=== PATIENT | female | born 1970 | race Caucasian/White ===

== ENCOUNTER 2017-06-03 14:58 | Emergency (ER) | payer SELFPAY ==
[~2017-06-03] VITALS: Ht 160 cm; Wt 95.3 kg
--- NOTE | 2017-06-03 16:05 | PHYS DOC ---
Past Medical History Past Medical History: COPD, High Cholesterol, Hypertension, Liver Disease, Other Additional Past Medical Histor: hepatitis c Past Surgical History: Appendectomy, Cholecystectomy, Hysterectomy, Tubal ligation, Other Additional Past Surgical Histo: Uterine Fibroid Tumors Additional Information: 3 ppd Alcohol Use: None Drug Use: None Adult General Chief Complaint Chief Complaint: CONTISPATION [facility] HPI Patient is a 46 year old female who presents with no bowel movement for the last 7-10 days. She states this happens quite frequently with her and she has diagnoses of irritable bowel syndrome. She states she's tried in the past MiraLAX and multiple other medications for constipation and enemas help. She states yesterday and today when she eats anything she vomits. She denies any blood in her stool states normally she has pretty hard bowel movements. She feels that her belly is distended but denies any pain acutely. She states that she's tried to 3 enemas at home and last time this happened she had milk of molasses enemas to help. Review of Systems Review of Systems Constitutional: Denies fever or chills [] Eyes: Denies change in visual acuity, redness, or eye pain [] HENT: Denies nasal congestion or sore throat [] Respiratory: Denies cough or shortness of breath [] Cardiovascular: No additional information not addressed in HPI [] GI: Denies abdominal pain, nausea, vomiting, bloody stools or diarrhea [] : Denies dysuria or hematuria [] Musculoskeletal: Denies back pain or joint pain [] Integument: Denies rash or skin lesions [] Neurologic: Denies headache, focal weakness or sensory changes [] Endocrine: Denies polyuria or polydipsia [] Current Medications Current Medications Current Medications Medications (Trade) Dose Ordered Sig/Shanelle Start Time Stop Time Status Last Admin Dose Admin Info (Do NOT chart on this entry -- for MONITORING) 1 each PRN DAILY PRN 06/03/17 16:30 06/05/17 16:29 Iohexol (Omnipaque 300 Mg/ml) 75 ml 1X ONCE 06/03/17 16:30 06/03/17 16:31 DC 06/03/17 16:30 75 ML Ondansetron HCl (Zofran) 4 mg 1X ONCE 06/03/17 16:30 06/03/17 16:31 DC 06/03/17 16:51 4 MG Sodium Monofluorophosphate (Fleet Adult) 133 ml 1X ONCE 06/03/17 19:45 06/03/17 19:46 DC Sodium Chloride 1,000 ml @ 1,000 mls/hr 1X ONCE 06/03/17 16:30 06/03/17 17:29 DC 06/03/17 16:47 1,000 MLS/HR Allergies Allergies Allergies Coded Allergies Type Severity Reaction Last Updated Verified Penicillins Allergy Intermediate 04/09/14 Yes Physical Exam Physical Exam Constitutional: Well developed, well nourished, no acute distress, non-toxic appearance. [] HENT: Normocephalic, atraumatic, bilateral external ears normal, oropharynx moist, no oral exudates, nose normal. [] Eyes: PERRLA, EOMI, conjunctiva normal, no discharge. [] Neck: Normal range of motion, no tenderness, supple, no stridor. [] Cardiovascular:Heart rate regular rhythm, no murmur [] Lungs & Thorax: Bilateral breath sounds clear to auscultation [] Abdomen: Bowel sounds normal, soft, no tenderness, no masses, no pulsatile masses. [] Skin: Warm, dry, no erythema, no rash. [] Back: No tenderness, no CVA tenderness. [] Extremities: No tenderness, no cyanosis, no clubbing, ROM intact, no edema. [] Neurologic: Alert and oriented X 3, normal motor function, normal sensory function, no focal deficits noted. [] Psychologic: Affect normal, judgement normal, mood normal. [] Current Patient Data Vital Signs Vital Signs Date Time Temp Pulse Resp B/P (MAP) Pulse Ox O2 Delivery O2 Flow Rate FiO2 06/03/17 17:02 77 20 127/82 (97) 96 Room Air 06/03/17 15:05 97.8 97.8 Lab Values Laboratory Tests Test 06/03/17 15:10 06/03/17 16:55 Urine Collection Type Unknown Urine Color Yellow Urine Clarity Clear Urine pH 7.5 Urine Specific [place] 1.020 Urine Protein Negative mg/dL (NEG-TRACE) Urine Glucose (UA) Negative mg/dL (NEG) Urine Ketones (Stick) Negative mg/dL (NEG) Urine Blood Negative (NEG) Urine Nitrite Negative (NEG) Urine Bilirubin Negative (NEG) Urine Urobilinogen Dipstick 1.0 mg/dL (0.2 mg/dL) Urine Leukocyte Esterase Trace (NEG) Urine RBC 0 /HPF (0-2) Urine WBC Occ /HPF (0-4) Urine Squamous Epithelial Cells Mod /LPF Urine Bacteria Moderate /HPF (0-FEW) Urine Mucus Slight /LPF Urine Opiates Screen Neg (NEG) Urine Methadone Screen Neg (NEG) Urine Barbiturates Neg (NEG) Urine Phencyclidine Screen Neg (NEG) Urine Amphetamine/Methamphetamine Neg (NEG) Urine Benzodiazepines Screen Neg (NEG) Urine Cocaine Screen Neg (NEG) Urine Cannabinoids Screen Neg (NEG) Urine Ethyl Alcohol Neg (NEG) White Blood Count 10.0 x10^3/uL (4.0-11.0) Red Blood Count 4.79 x10^6/uL (3.50-5.40) Hemoglobin 15.1 g/dL (12.0-15.5) Hematocrit 43.7 % (36.0-47.0) Mean Corpuscular Volume 91 fL (79-100) Mean Corpuscular Hemoglobin 31 pg (25-35) Mean Corpuscular Hemoglobin Concent 35 g/dL (31-37) Red Cell Distribution Width 12.8 % (11.5-14.5) Platelet Count 241 x10^3/uL (140-400) Neutrophils (%) (Auto) 56 % (31-73) Lymphocytes (%) (Auto) 35 % (24-48) Monocytes (%) (Auto) 6 % (0-9) Eosinophils (%) (Auto) 2 % (0-3) Basophils (%) (Auto) 1 % (0-3) Neutrophils # (Auto) 5.6 x10^3uL (1.8-7.7) Lymphocytes # (Auto) 3.4 x10^3/uL (1.0-4.8) Monocytes # (Auto) 0.6 x10^3/uL (0.0-1.1) Eosinophils # (Auto) 0.2 x10^3/uL (0.0-0.7) Basophils # (Auto) 0.1 x10^3/uL (0.0-0.2) Prothrombin Time 12.7 SEC (11.7-14.0) Prothrombin Time INR 1.0 (0.8-1.1) PTT 26 SEC (24-38) Sodium Level 137 mmol/L (136-145) Potassium Level 3.7 mmol/L (3.5-5.1) Chloride Level 99 mmol/L (98-107) Carbon Dioxide Level 27 mmol/L (21-32) Anion Gap 11 (6-14) Blood Urea Nitrogen 21 mg/dL (7-20) H Creatinine 0.9 mg/dL (0.6-1.0) Estimated GFR (Cockcroft-Gault) 67.1 Glucose Level 137 mg/dL (70-99) H Calcium Level 8.5 mg/dL (8.5-10.1) Total Bilirubin 0.3 mg/dL (0.2-1.0) Direct Bilirubin 0.1 mg/dL (0.0-0.2) Aspartate Amino Transferase (AST) 32 U/L (15-37) Alanine Aminotransferase (ALT) 63 U/L (14-59) H Alkaline Phosphatase 46 U/L (46-116) Creatine Kinase 87 U/L (26-192) Creatine Kinase MB (Mass) 0.6 ng/mL (0.0-3.6) Creatine Kinase MB Relative Index 0.7 % (0-4) Total Protein 8.2 g/dL (6.4-8.2) Albumin 4.6 g/dL (3.4-5.0) Lipase 169 U/L (73-393) Laboratory Tests 06/03/17 16:55 Laboratory Tests 06/03/17 16:55 EKG EKG [] Radiology/Procedures Radiology/Procedures [facility] [address] [place], [place] [id number] IMAGING REPORT Signed PATIENT: PASCALE RAGLAND ACCOUNT: [id number] : 1970 LOCATION: ER AGE: 46 SEX: F EXAM STATUS: REG ER ORD. PHYSICIAN: MAYURI ZABALA MD REASON: abd pain/constipation PROCEDURE: CT ABD PELV W/ORAL&IV CONTRAST CT Abdomen and Pelvis With Intravenous Contrast: History: Abdominal pain and constipation for 2 days. Comparison: None. Technique: After administration of oral and intravenous contrast administration, 75 mL Omnipaque-300, CT of the abdomen and pelvis was performed. Exposure: One or more of the following individualized dose reduction techniques were utilized for this examination: 1. Automated exposure control 2. Adjustment of the mA and/or kV according to patient size 3. Use of iterative reconstruction technique Findings: Fatty liver disease is seen. Spleen pancreas is unremarkable. Both adrenal glands demonstrate mild nodular thickening. Gallbladder is absent. Bilateral kidneys enhance symmetrically. Urinary bladder is unremarkable. No bowel obstruction or inflammation is seen. Appendix is absent. Uterus is absent. Urinary bladder is unremarkable. No free air free fluid is seen in the abdomen or pelvis. Small fat-containing epigastric ventral hernias present. Impression: 1. No acute abnormality identified in the abdomen or pelvis. 2. Fat-containing ventral hernia. Electronically signed by: Jarvis Marks MD (06/03/2017 6:34 PM) [facility] DICTATED and SIGNED BY: JARVIS MARKS MD DATE: 06/03/17 183 CC: MAYURI ZABALA MD; UNKNOWN PCP NAME ~ Impressions: Constipation Course & Med Decision Making Course & Med Decision Making Pertinent Labs and Imaging studies reviewed. (See chart for details) [] Dragon Disclaimer Dragon Disclaimer This electronic medical record was generated, in whole or in part, using a voice recognition dictation system. Departure Departure Impression: Primary Impression: Constipation Disposition: 01 HOME, SELF-CARE Condition: STABLE Referrals: UNKNOWN PCP NAME (PCP) LIA MADERA MD Patient Instructions: Constipation, Adult Additional Instructions: The CAT scan of your abdomen pelvis did not show any acute abnormality's. You received milk of molasses enemas and being discharged home. You can go to the pharmacy and steel pickler mag citrate bottle and drink one bottle and this should make you used the bathroom. He should follow up with your primary care physician and a GI physician regarding your issues with constipation. You can call Dr. Chacon and schedule appointment with him. Return ER if you have worsening pain, uncontrolled nausea vomiting, or other concerns. Problem Qualifiers Primary Impression: Constipation Constipation type: other constipation type Qualified Codes: K59.09 - Other constipation MAYURI ZABALA MD Jun 03, 2017 16:05
[2017-06-03 16:24] LABS: BILIRUBIN,URINE NEGATIVE (NEG); GLUCOSE,URINE NEGATIVE (NEG); NITRITE,URINE NEGATIVE (NEG); PH,URINE 7.5; PROTEIN,URINE NEGATIVE (NEG-TRACE)
[2017-06-03] MEDS ORDERED: IV NORMAL SALINE 1000ML BAG 1,000 ML IV ONE (16:30)
[2017-06-03] MEDS ORDERED: IOHEXOL 300 MG/ML 75 ML VIAL IV ONE (16:30)
[2017-06-03] MEDS ORDERED: CONTRAST GIVEN MC PRN (16:30)
[2017-06-03] MEDS ORDERED: ONDANSETRON PF 4 MG/2 ML VIAL. IV ONE (16:30)
[2017-06-03 16:39] LABS: BARBITURATES NEG (NEG); BENZODIAZEPINES NEG (NEG); CANNABINOIDS NEG (NEG); COCAINE NEG (NEG); METHADONE NEG (NEG); OPIATES NEG (NEG); PHENCYCLIDINE NEG (NEG)
[2017-06-03 16:55] LABS: BACTERIA,URINE MODERATE /HPF (0-FEW); RBC,URINE 0 /HPF (0-2); SQUAMOUS EPITHELIAL CELL,UR MOD /LPF; WBC,URINE OCC /HPF (0-4)
[2017-06-03 17:02] VITALS: BP 127/82
[2017-06-03 17:19] LABS: BASO # 0.1 x10^3/uL (0.0-0.2); BASO % 1 % (0-3); EOS % 2 % (0-3); HEMATOCRIT 43.7 % (36.0-47.0); HEMOGLOBIN 15.1 g/dL (12.0-15.5); LYMPH # 3.4 x10^3/uL (1.0-4.8); LYMPH % 35 % (24-48); MEAN CORPUSCULAR HEMOGLOBIN 31 pg (25-35); MEAN CORPUSCULAR HGB CONC 35 g/dL (31-37); MEAN CORPUSCULAR VOLUME 91 fL (79-100); MONO % 6 % (0-9); NEUT % 56 % (31-73); PLATELET COUNT 241 x10^3/uL (140-400); RED BLOOD COUNT 4.79 x10^6/uL (3.50-5.40); RED CELL DISTRIBUTION WIDTH 12.8 % (11.5-14.5)
[2017-06-03 17:33] LABS: CALCIUM 8.5 mg/dL (8.5-10.1); CREATININE 0.9 mg/dL (0.6-1.0); GFR 67.1; POTASSIUM 3.7 mmol/L (3.5-5.1)
[2017-06-03 17:37] LABS: PROTHROMBIN TIME PATIENT 12.7 SEC (11.7-14.0)
[2017-06-03 17:45] LABS: CKMB MASS 0.6 ng/mL (0.0-3.6)
[2017-06-03 17:46] LABS: ALBUMIN 4.6 g/dL (3.4-5.0); DIRECT BILIRUBIN 0.1 mg/dL (0.0-0.2); TOTAL BILIRUBIN 0.3 mg/dL (0.2-1.0); TOTAL PROTEIN 8.2 g/dL (6.4-8.2)
--- NOTE | 2017-06-03 18:38 | RAD ---
CT Abdomen and Pelvis With Intravenous Contrast: History: Abdominal pain and constipation for 2 days. Comparison: None. Technique: After administration of oral and intravenous contrast administration, 75 mL Omnipaque-300, CT of the abdomen and pelvis was performed. Exposure: One or more of the following individualized dose reduction techniques were utilized for this examination: 1. Automated exposure control 2. Adjustment of the mA and/or kV according to patient size 3. Use of iterative reconstruction technique Findings: Fatty liver disease is seen. Spleen pancreas is unremarkable. Both adrenal glands demonstrate mild nodular thickening. Gallbladder is absent. Bilateral kidneys enhance symmetrically. Urinary bladder is unremarkable. No bowel obstruction or inflammation is seen. Appendix is absent. Uterus is absent. Urinary bladder is unremarkable. No free air free fluid is seen in the abdomen or pelvis. Small fat-containing epigastric ventral hernias present. Impression: 1. No acute abnormality identified in the abdomen or pelvis. 2. Fat-containing ventral hernia. Electronically signed by: Jarvis Melchor MD (06/03/2017 6:34 PM) [facility]
[2017-06-03] MEDS ORDERED: SODIUM PHOSPHATES 19/7GM 133 ML ENEMA. PR ONE (19:45)
== END 2017-06-03 20:25 | disposition home or self-care (01) ==
LOC: ER 14:58
DX: K59.00 Constipation, unspecified (principal); J44.9 Chronic obstructive pulmonary disease, unspecified; E78.00 Pure hypercholesterolemia, unspecified; I10 Essential (primary) hypertension; K58.9 Irritable bowel syndrome, unspecified; F17.200 Nicotine dependence, unspecified, uncomplicated; Z88.0 Allergy status to penicillin; Z86.19 Personal history of other infectious and parasitic diseases; Z90.49 Acquired absence of other specified parts of digestive tract; Z90.710 Acquired absence of both cervix and uterus
CPT/HCPCS: 36415; 74177; 80048; 80076; 80307; 81001; 82553; 83690; 85025; 85610; 85730; 87086; 96361; 96374; 99285; J2405; J7030; Q9967; G0479

== ENCOUNTER 2019-04-14 16:45 | Emergency (ER) | payer SELFPAY ==
[~2019-04-14] VITALS: Ht 160 cm; Wt 102.5 kg
--- NOTE | 2019-04-14 18:16 | RAD ---
ABDOMEN SUPINE UPRIGHT History: Constipation Comparison: February 20, 2011 Findings: Single upright and single AP supine views of abdomen are submitted. No free air is identified. There has been cholecystectomy. There are several air-fluid levels most notable in the right abdomen in the small bowel. Segments of small bowel are borderline dilated in the right abdomen. There is some gas in the colon. There is retained stool greater of the right colon and near splenic flexure. Impression: 1. There are some nonspecific air-fluid levels most notable of borderline dilated small bowel in the right abdomen which could be due to early partial obstruction or ileus. There is some retained stool in the colon. Electronically signed by: Jose Walters MD (04/14/2019 6:13 PM) [facility]
[2019-04-14 18:59] LABS: BARBITURATES NEG (NEG); BENZODIAZEPINES NEG (NEG); CANNABINOIDS NEG (NEG); COCAINE NEG (NEG); METHADONE NEG (NEG); OPIATES NEG (NEG); PHENCYCLIDINE NEG (NEG)
[2019-04-14 19:02] LABS: AMPHETAMINE/METHAMPHETAMINE NEG (NEG)
[2019-04-14 19:22] LABS: BASO # 0.1 x10^3/uL (0.0-0.2); BASO % 1 % (0-3); EOS # 0.2 x10^3/uL (0.0-0.7); EOS % 2 % (0-3); HEMATOCRIT 44.9 % (36.0-47.0); HEMOGLOBIN 15.7 g/dL (12.0-15.5); LYMPH # 4.1 x10^3/uL (1.0-4.8); LYMPH % 42 % (24-48); MEAN CORPUSCULAR HEMOGLOBIN 32 pg (25-35); MEAN CORPUSCULAR HGB CONC 35 g/dL (31-37); MEAN CORPUSCULAR VOLUME 90 fL (79-100); MONO # 0.5 x10^3/uL (0.0-1.1); MONO % 5 % (0-9); NEUT # 4.8 x10^3uL (1.8-7.7); NEUT % 49 % (31-73); PLATELET COUNT 223 x10^3/uL (140-400); RED BLOOD COUNT 4.99 x10^6/uL (3.50-5.40); RED CELL DISTRIBUTION WIDTH 12.9 % (11.5-14.5); WHITE BLOOD COUNT 9.8 x10^3/uL (4.0-11.0)
--- NOTE | 2019-04-14 19:39 | PHYS DOC ---
Past Medical History Past Medical History: COPD, High Cholesterol, Hypertension, Liver Disease, Other Additional Past Medical Histor: hepatitis c (ERNST LYON APRN) Past Surgical History: Appendectomy, Cholecystectomy, Hysterectomy, Tubal ligation, Other Additional Past Surgical Histo: Uterine Fibroid Tumors (ERNST LYON APRN) Alcohol Use: None Drug Use: None (ERNST LYON APRN) Adult General Chief Complaint Chief Complaint: CONSTIPATION HPI HPI Patient is a 48 year old female with a history of high cholesterol, hypertension, liver disease, COPD, who presents to the ED today complaining of constipation with mild generalized abdominal pain for one week. Patient states her last normal bowel movement was a week ago, she has tried enemas as well as OTC enemas with small amount of stool. She states she has history of chronic constipation. Denies taking any medications that could make her constipated. She is also complaining of nausea and vomiting. (ERNST LYON APRN) Review of Systems Review of Systems Constitutional: Denies fever or chills [] Eyes: Denies change in visual acuity, redness, or eye pain [] HENT: Denies nasal congestion or sore throat [] Respiratory: Denies cough or shortness of breath [] Cardiovascular: No additional information not addressed in HPI [] GI: Reports constipation, abdominal pain, nausea and vomiting, denies bloody sto ols or diarrhea [] : Denies dysuria or hematuria [] Musculoskeletal: Denies back pain or joint pain [] Integument: Denies rash or skin lesions [] Neurologic: Denies headache, focal weakness or sensory changes [] All other systems were reviewed and found to be within normal limits, except as documented in this note. (ERNST LYON APRN) Current Medications Current Medications Current Medications Medications (Trade) Dose Ordered Sig/Shanelle Start Time Stop Time Status Last Admin Dose Admin Bisacodyl (Dulcolax Tab) 10 mg 1X ONCE 04/14/19 22:00 04/14/19 22:00 DC 04/14/19 21:35 10 MG Info (CONTRAST GIVEN -- Rx MONITORING) 1 each PRN DAILY PRN 04/14/19 20:45 04/14/19 21:43 DC Iohexol (Omnipaque 300 Mg/ml) 75 ml 1X ONCE 04/14/19 21:00 04/14/19 21:01 DC 04/14/19 20:45 75 ML Ketorolac Tromethamine (Toradol 30mg Vial) 30 mg 1X ONCE 04/14/19 19:45 04/14/19 19:46 DC 04/14/19 19:36 30 MG Magnesium Citrate (Citroma) 296 ml STK-MED ONCE 04/14/19 21:26 04/14/19 21:27 DC Ondansetron HCl (Zofran Odt) 4 mg 1X ONCE 04/14/19 22:00 04/14/19 22:00 DC 04/14/19 21:34 4 MG (DANIEL MYLES DO) Allergies Allergies Allergies Coded Allergies Type Severity Reaction Last Updated Verified Penicillins Allergy Intermediate 04/09/14 Yes (DANIEL MYLES DO) Physical Exam Physical Exam Constitutional: Well developed, well nourished, no acute distress, non-toxic appearance. [] HENT: Normocephalic, atraumatic, bilateral external ears normal, oropharynx moist, no oral exudates, nose normal. [] Eyes: PERRLA, EOMI, conjunctiva normal, no discharge. [] Neck: Normal range of motion, no tenderness, supple, no stridor. [] Cardiovascular:Heart rate regular rhythm, no murmur [] Lungs & Thorax: Bilateral breath sounds clear to auscultation [] Abdomen: Rounded nondistended abdomen. Bowel sounds normal, soft, diffuse tenderness throughout the abdomen, no masses, no pulsatile masses. [] Skin: Warm, dry, no erythema, no rash. [] Back: No tenderness, no CVA tenderness. [] Extremities: No tenderness, no cyanosis, no clubbing, ROM intact, no edema. [] Neurologic: Alert and oriented X 3, normal motor function, normal sensory function, no focal deficits noted. [] Psychologic: Affect normal, judgement normal, mood normal. [] (ERNST LYON APRN) Current Patient Data Vital Signs Vital Signs Date Time Temp Pulse Resp B/P (MAP) Pulse Ox O2 Delivery O2 Flow Rate FiO2 04/14/19 20:48 80 16 144/70 (94) 98 Room Air 04/14/19 17:27 98.1 98.1 (DANIEL MYLES DO) Lab Values Laboratory Tests Test 04/14/19 17:30 04/14/19 19:07 7/6/19 19:35 Urine Opiates Screen Neg (NEG) Urine Methadone Screen Neg (NEG) Urine Barbiturates Neg (NEG) Urine Phencyclidine Screen Neg (NEG) Urine Amphetamine/Methamphetamine Neg (NEG) Urine Benzodiazepines Screen Neg (NEG) Urine Cocaine Screen Neg (NEG) Urine Cannabinoids Screen Neg (NEG) Urine Ethyl Alcohol Neg (NEG) White Blood Count 9.8 x10^3/uL (4.0-11.0) Red Blood Count 4.99 x10^6/uL (3.50-5.40) Hemoglobin 15.7 g/dL (12.0-15.5) H Hematocrit 44.9 % (36.0-47.0) Mean Corpuscular Volume 90 fL (79-100) Mean Corpuscular Hemoglobin 32 pg (25-35) Mean Corpuscular Hemoglobin Concent 35 g/dL (31-37) Red Cell Distribution Width 12.9 % (11.5-14.5) Platelet Count 223 x10^3/uL (140-400) Neutrophils (%) (Auto) 49 % (31-73) Lymphocytes (%) (Auto) 42 % (24-48) Monocytes (%) (Auto) 5 % (0-9) Eosinophils (%) (Auto) 2 % (0-3) Basophils (%) (Auto) 1 % (0-3) Neutrophils # (Auto) 4.8 x10^3uL (1.8-7.7) Lymphocytes # (Auto) 4.1 x10^3/uL (1.0-4.8) Monocytes # (Auto) 0.5 x10^3/uL (0.0-1.1) Eosinophils # (Auto) 0.2 x10^3/uL (0.0-0.7) Basophils # (Auto) 0.1 x10^3/uL (0.0-0.2) Sodium Level 137 mmol/L (136-145) Potassium Level 4.2 mmol/L (3.5-5.1) Chloride Level 101 mmol/L (98-107) Carbon Dioxide Level 25 mmol/L (21-32) Anion Gap 11 (6-14) Blood Urea Nitrogen 17 mg/dL (7-20) Creatinine 0.8 mg/dL (0.6-1.0) Estimated GFR (Cockcroft-Gault) 76.2 BUN/Creatinine Ratio 21 (6-20) H Glucose Level 160 mg/dL (70-99) H Calcium Level 9.0 mg/dL (8.5-10.1) Total Bilirubin 0.3 mg/dL (0.2-1.0) Aspartate Amino Transferase (AST) 37 U/L (15-37) Alanine Aminotransferase (ALT) 71 U/L (14-59) H Alkaline Phosphatase 57 U/L (46-116) Total Protein 7.8 g/dL (6.4-8.2) Albumin 3.8 g/dL (3.4-5.0) Albumin/Globulin Ratio 1.0 (1.0-1.7) Lipase 354 U/L (73-393) Ethyl Alcohol Level < 10 mg/dL (0-10) Laboratory Tests 04/14/19 19:07 Laboratory Tests 04/14/19 19:35 (DANIEL MYLES DO) EKG EKG [] (ERNST LYON APRN) Radiology/Procedures Radiology/Procedures []PROCEDURE: ABDOMEN SUPINE & UPRIGHT ABDOMEN SUPINE UPRIGHT History: Constipation Comparison: February 20, 2011 Findings: Single upright and single AP supine views of abdomen are submitted. No free air is identified. There has been cholecystectomy. There are several air-fluid levels most notable in the right abdomen in the small bowel. Segments of small bowel are borderline dilated in the right abdomen. There is some gas in the colon. There is retained stool greater of the right colon and near splenic flexure. Impression: 1. There are some nonspecific air-fluid levels most notable of borderline dilated small bowel in the right abdomen which could be due to early partial obstruction or ileus. There is some retained stool in the colon. Electronically signed by: Cee Green MD (04/14/2019 6:13 PM) [facility] DICTATED and SIGNED BY: CEE GREEN MD DATE: 04/14/191812 PROCEDURE: CT ABD PELV W/ IV CONTRST ONLY PQRS Compliance statement: One or more of the following individualized dose reduction techniques were utilized for this examination: 1. Automated exposure control. 2. Adjustment of the mA and/or kV according to patient size. 3. Use of iterative reconstruction technique. Indication:Constipation. Possible ileus. TECHNIQUE: CT abdomen and pelvis with IV contrast with multiplanar reformats. COMPARISON: 06/03/2017. FINDINGS: Heart is normal in size. No pericardial or pleural effusion. Clear lung bases. Hepatic steatosis. Spleen, pancreas, left adrenal within normal limits. Status post cholecystectomy. Subcentimeter right adrenal nodule, stable most likely adenoma. No nephrolithiasis or hydronephrosis. No free pelvic fluid or ascites. Status post hysterectomy. No enlarged retroperitoneal or pelvic adenopathy. Stable buck hepatis lymph nodes, nonspecific most likely reactive. No bowel obstruction. Small supraumbilical omental fat-containing hernia with neck of the hernia measuring 1.8 cm. Urinary bladder is within normal limits. No pneumoperitoneum. No suspicious bony lesion. IMPRESSION: 1. Hepatic steatosis. 2. No bowel obstruction. No significant colonic stool burden. 3. Small supraumbilical omental fat-containing hernia. Electronically signed by: Kain Garg DO (04/14/2019 8:58 PM) [facility] DICTATED and SIGNED BY: KAIN GARG DO DATE: 04/14/192057 (ERNST LYON APRN) Course & Med Decision Making Course & Med Decision Making Pertinent Labs and Imaging studies reviewed. (See chart for details) This is a 48-year-old female patient presented to the ED today with constipation, last normal bowel movement 1 week ago, though she states she has done enema with small amount of stool yesterday. Also complaining of nausea and vomiting. Has tried [id number]-[id number]-dikzyng enemas with no relief. Abdominal x-rays were noted for possible ileus. Labs obtained, CT of the abdomen and pelvic was negative for any acute findings, noted for subabdominal hernia. Patient was given mag citrate, Dulcolax, and Zofran in the ED. Discharged with instructions to take mag citrate for the next 2-3 days until she has a normal bowel movement. Also encouraged her to take MiraLAX and increase dietary fiber intake. (ERNST LYON APRN) Dragon Disclaimer Dragon Disclaimer This electronic medical record was generated, in whole or in part, using a voice recognition dictation system. (ERNST LYON APRN) Departure Departure Impression: Primary Impression: Constipation Disposition: 01 HOME, SELF-CARE Condition: STABLE Referrals: NO PCP (PCP) LIA MADERA MD follow up in 1 week Patient Instructions: Constipation, Adult Additional Instructions: You were evaluated in the emergency room for constipation. Please increase your dietary fiber intake, also increase your water intake to 64 ounces a day, take MiraLAX every day to prevent constipation. Take magnesium citrate daily for the next 2-3 days until you have a normal bowel movement. Try to exercise. Follow-up with the provided GI doctor or your own doctor in the course of next week. Scripts Polyethylene Glycol 3350 (MIRALAX) 17 Gm Powd.pack 1 PACKET PO DAILY, #30 PACKET 3 Refills Prov: ROXANARICHARDERNST GARDUNO 04/14/19 Attending Signature Attending Signature I have reviewed the PA/HAND STRAIGHTENER's note and plan of care. I was available for consultation as needed during the patient's visit in the emergency department. I agree with the clinical impression, plan, and disposition. (DANIEL MYLES DO) Problem Qualifiers Primary Impression: Constipation Constipation type: unspecified constipation type Qualified Codes: K59.00 - Constipation, unspecified ERNST LYON APRN Apr 14, 2019 19:39 DANIEL MYLES DO Apr 15, 2019 05:26
[2019-04-14] MEDS ORDERED: KETOROLAC 30 MG/ML VIAL. IV ONE (19:45)
[2019-04-14 20:05] LABS: CREATININE 0.8 mg/dL (0.6-1.0); GFR 76.2; POTASSIUM 4.2 mmol/L (3.5-5.1)
[2019-04-14 20:11] LABS: ALBUMIN 3.8 g/dL (3.4-5.0); TOTAL BILIRUBIN 0.3 mg/dL (0.2-1.0); TOTAL PROTEIN 7.8 g/dL (6.4-8.2)
[2019-04-14] MEDS ORDERED: CONTRAST GIVEN. MC PRN (20:45)
[2019-04-14 20:48] VITALS: BP 144/70
[2019-04-14] MEDS ORDERED: IOHEXOL 300 MG/ML 100ML VIAL. IV ONE (21:00)
--- NOTE | 2019-04-14 21:00 | RAD ---
PQRS Compliance statement: One or more of the following individualized dose reduction techniques were utilized for this examination: 1. Automated exposure control. 2. Adjustment of the mA and/or kV according to patient size. 3. Use of iterative reconstruction technique. Indication:Constipation. Possible ileus. TECHNIQUE: CT abdomen and pelvis with IV contrast with multiplanar reformats. COMPARISON: 06/03/2017. FINDINGS: Heart is normal in size. No pericardial or pleural effusion. Clear lung bases. Hepatic steatosis. Spleen, pancreas, left adrenal within normal limits. Status post cholecystectomy. Subcentimeter right adrenal nodule, stable most likely adenoma. No nephrolithiasis or hydronephrosis. No free pelvic fluid or ascites. Status post hysterectomy. No enlarged retroperitoneal or pelvic adenopathy. Stable buck hepatis lymph nodes, nonspecific most likely reactive. No bowel obstruction. Small supraumbilical omental fat-containing hernia with neck of the hernia measuring 1.8 cm. Urinary bladder is within normal limits. No pneumoperitoneum. No suspicious bony lesion. IMPRESSION: 1. Hepatic steatosis. 2. No bowel obstruction. No significant colonic stool burden. 3. Small supraumbilical omental fat-containing hernia. Electronically signed by: Kain Garg DO (04/14/2019 8:58 PM) [facility]
[2019-04-14] MEDS ORDERED: MAGNESIUM CITRATE 296 ML SOLUTION. ONE (21:26)
[2019-04-14] MEDS ORDERED: POLY17PO29 PO (21:26)
[2019-04-14] MEDS ORDERED: ONDANSETRON ODT 4 MG TAB.RAPDIS. PO ONE (22:00)
[2019-04-14] MEDS ORDERED: BISACODYL 5 MG TABLET.DR. PO ONE (22:00)
[2019-04-14] MEDS ORDERED: MAGNESIUM CITRATE 296 ML SOLUTION. PO ONE (22:00)
== END 2019-04-14 21:43 | disposition home or self-care (01) ==
LOC: ER 16:45
DX: K59.00 Constipation, unspecified (principal); R11.2 Nausea with vomiting, unspecified; J44.9 Chronic obstructive pulmonary disease, unspecified; E78.00 Pure hypercholesterolemia, unspecified; I10 Essential (primary) hypertension; Z90.89 Acquired absence of other organs; Z90.49 Acquired absence of other specified parts of digestive tract; Z90.710 Acquired absence of both cervix and uterus; Z98.51 Tubal ligation status; Z88.0 Allergy status to penicillin
CPT/HCPCS: 36415; 74021; 74177; 80053; 80307; 83690; 85025; 96374; 99285; G0480; J1885; Q0162; Q9967

== ENCOUNTER 2021-06-15 14:10 | Emergency (ER) | payer OTHER ==
[~2021-06-15] VITALS: Ht 160 cm; Wt 105.0 kg
[~2021-06-15 14:10] MED LIST: POLY17PO29 PO
[2021-06-15 14:47] LABS: BASO % 1 % (0-3); EOS # 0.1 x10^3/uL (0.0-0.7); EOS % 1 % (0-3); HEMATOCRIT 42.9 % (36.0-47.0); HEMOGLOBIN 15.1 g/dL (12.0-15.5); LYMPH # 1.7 x10^3/uL (1.0-4.8); LYMPH % 34 % (24-48); MEAN CORPUSCULAR HEMOGLOBIN 32 pg (25-35); MEAN CORPUSCULAR HGB CONC 35 g/dL (31-37); MEAN CORPUSCULAR VOLUME 89 fL (79-100); MONO # 0.4 x10^3/uL (0.0-1.1); MONO % 8 % (0-9); NEUT # 2.8 x10^3/uL (1.8-7.7); NEUT % 56 % (31-73); PLATELET COUNT 190 x10^3/uL (140-400); RED CELL DISTRIBUTION WIDTH 13.2 % (11.5-14.5)
[2021-06-15 14:56] LABS: CALCIUM 9.1 mg/dL (8.5-10.1); CREATININE 0.8 mg/dL (0.6-1.0); GFR 75.6; POTASSIUM 4.2 mmol/L (3.5-5.1)
[2021-06-15 15:02] LABS: ALBUMIN 3.6 g/dL (3.4-5.0); ALBUMIN/GLOBULIN RATIO 0.9 (1.0-1.7); MAGNESIUM 1.6 mg/dL (1.8-2.4); TOTAL BILIRUBIN 0.4 mg/dL (0.2-1.0); TOTAL PROTEIN 7.6 g/dL (6.4-8.2)
--- NOTE | 2021-06-15 15:04 | PHYS DOC ---
Past Medical History Past Medical History: COPD, High Cholesterol, Hypertension, Liver Disease, Other Additional Past Medical Histor: hepatitis c Past Surgical History: Appendectomy, Cholecystectomy, Hysterectomy Additional Past Surgical Histo: Uterine Fibroid Tumors Smoking Status: Current Every Day Smoker Alcohol Use: None Drug Use: None General Adult EDM: Chief Complaint: abdominal pain HPI: HPI: Patient is a 50 year old female who present to ER for evaluation of abdominal pain with rectal bleeding for the last 7 days. Patient had COPD history, has nonproductive cough for several days. Patient said her grandma daughter was tested positive for COVID-19 2 days ago. Patient denies any nausea vomiting, she is not on any blood thinner. Patient denies any chest pain. Review of Systems: Review of Systems: Constitutional: Denies fever or chills. [] Eyes: Denies change in visual acuity. [] HENT: Denies nasal congestion or sore throat. [] Respiratory: Positive for cough or shortness of breath. [] Cardiovascular: Denies chest pain or edema. [] GI: Positive for abdominal pain, no nausea vomiting, positive for blood in stool. : Denies dysuria. [] Musculoskeletal: Denies back pain or joint pain. [] Integument: Denies rash. [] Neurologic: Denies headache, focal weakness or sensory changes. [] Endocrine: Denies polyuria or polydipsia. [] Lymphatic: Denies swollen glands. [] Psychiatric: Denies depression or anxiety. [] Heart Score: C/O Chest Pain: N/A Risk Factors: Risk Factors: DM, Current or recent (<one month) smoker, HTN, HLP, family history of CAD, obesity. Risk Scores: Score 0 - 3: 2.5% MACE over next 6 weeks - Discharge Home Score 4 - 6: 20.3% MACE over next 6 weeks - Admit for Clinical Observation Score 7 - 10: 72.7% MACE over next 6 weeks - Early Invasive Strategies Allergies: Allergies: Allergies Coded Allergies Type Severity Reaction Last Updated Verified Penicillins Allergy Intermediate 06/15/21 Yes Physical Exam: PE: Constitutional: Well developed, well nourished, no acute distress, non-toxic appearance. [] HENT: Normocephalic, atraumatic, bilateral external ears normal, oropharynx moist, no oral exudates, nose normal. [] Eyes: PERRLA, EOMI, conjunctiva normal, no discharge. [] Neck: Normal range of motion, no tenderness, supple, no stridor. [] Cardiovascular:Heart rate regular rhythm, no murmur [] Lungs & Thorax: Bilateral breath sounds clear to auscultation [] Abdomen: Bowel sounds normal, soft, there is diffuse tenderness to palpation, no masses, no pulsatile masses. [] Skin: Warm, dry, no erythema, no rash. [] Back: No tenderness, no CVA tenderness. [] Extremities: No tenderness, no cyanosis, no clubbing, ROM intact, no edema. [] Neurologic: Alert and oriented X 3, normal motor function, normal sensory function, no focal deficits noted. [] Psychologic: Affect normal, judgement normal, mood normal. [] Current Patient Data: Labs: Laboratory Tests Test 06/15/21 14:28 06/15/21 15:00 White Blood Count 5.0 x10^3/uL Red Blood Count 4.80 x10^6/uL Hemoglobin 15.1 g/dL Hematocrit 42.9 % Mean Corpuscular Volume 89 fL Mean Corpuscular Hemoglobin 32 pg Mean Corpuscular Hemoglobin Concent 35 g/dL Red Cell Distribution Width 13.2 % Platelet Count 190 x10^3/uL Neutrophils (%) (Auto) 56 % Lymphocytes (%) (Auto) 34 % Monocytes (%) (Auto) 8 % Eosinophils (%) (Auto) 1 % Basophils (%) (Auto) 1 % Neutrophils # (Auto) 2.8 x10^3/uL Lymphocytes # (Auto) 1.7 x10^3/uL Monocytes # (Auto) 0.4 x10^3/uL Eosinophils # (Auto) 0.1 x10^3/uL Basophils # (Auto) 0.0 x10^3/uL Sodium Level 138 mmol/L Potassium Level 4.2 mmol/L Chloride Level 101 mmol/L Carbon Dioxide Level 26 mmol/L Anion Gap 11 Blood Urea Nitrogen 15 mg/dL Creatinine 0.8 mg/dL Estimated GFR (Cockcroft-Gault) 75.6 BUN/Creatinine Ratio 19 Glucose Level 276 mg/dL Calcium Level 9.1 mg/dL Magnesium Level 1.6 mg/dL Total Bilirubin 0.4 mg/dL Aspartate Amino Transf (AST/SGOT) 86 U/L Alanine Aminotransferase (ALT/SGPT) 121 U/L Alkaline Phosphatase 58 U/L Troponin I Quantitative < 0.017 ng/mL HY-Bsh-H-Type Natriuretic Peptide 11 pg/mL Total Protein 7.6 g/dL Albumin 3.6 g/dL Albumin/Globulin Ratio 0.9 Lipase 156 U/L SARS-CoV-2 Antigen (Rapid) Positive Current Medications Medications (Trade) Dose Ordered Sig/Shanelle Route PRN Reason Start Time Stop Time Status Last Admin Dose Admin Magnesium Sulfate 50 ml @ 25 mls/hr 1X ONCE IV 06/15/21 15:30 06/15/21 17:29 DC 06/15/21 15:30 Iohexol (Omnipaque 300 Mg/ml) 75 ml 1X ONCE IV 06/15/21 16:00 06/15/21 16:03 DC 06/15/21 16:00 Info (CONTRAST GIVEN -- Rx MONITORING) 1 each PRN DAILY PRN MC SEE COMMENTS 06/15/21 16:15 06/17/21 16:14 06/15/21 16:38 Laboratory Tests Test 06/15/21 14:28 White Blood Count 5.0 x10^3/uL (4.0-11.0) Red Blood Count 4.80 x10^6/uL (3.50-5.40) Hemoglobin 15.1 g/dL (12.0-15.5) Hematocrit 42.9 % (36.0-47.0) Mean Corpuscular Volume 89 fL (79-100) Mean Corpuscular Hemoglobin 32 pg (25-35) Mean Corpuscular Hemoglobin Concent 35 g/dL (31-37) Red Cell Distribution Width 13.2 % (11.5-14.5) Platelet Count 190 x10^3/uL (140-400) Neutrophils (%) (Auto) 56 % (31-73) Lymphocytes (%) (Auto) 34 % (24-48) Monocytes (%) (Auto) 8 % (0-9) Eosinophils (%) (Auto) 1 % (0-3) Basophils (%) (Auto) 1 % (0-3) Neutrophils # (Auto) 2.8 x10^3/uL (1.8-7.7) Lymphocytes # (Auto) 1.7 x10^3/uL (1.0-4.8) Monocytes # (Auto) 0.4 x10^3/uL (0.0-1.1) Eosinophils # (Auto) 0.1 x10^3/uL (0.0-0.7) Basophils # (Auto) 0.0 x10^3/uL (0.0-0.2) Sodium Level 138 mmol/L (136-145) Potassium Level 4.2 mmol/L (3.5-5.1) Chloride Level 101 mmol/L (98-107) Carbon Dioxide Level 26 mmol/L (21-32) Anion Gap 11 (6-14) Blood Urea Nitrogen 15 mg/dL (7-20) Creatinine 0.8 mg/dL (0.6-1.0) Estimated GFR (Cockcroft-Gault) 75.6 BUN/Creatinine Ratio 19 (6-20) Glucose Level 276 mg/dL (70-99) H Calcium Level 9.1 mg/dL (8.5-10.1) Magnesium Level Pending Total Bilirubin Pending Aspartate Amino Transferase (AST) Pending Alanine Aminotransferase (ALT) Pending Alkaline Phosphatase Pending Total Protein Pending Albumin Pending Albumin/Globulin Ratio Pending Lipase Pending Laboratory Tests 06/15/21 14:28 Laboratory Tests 06/15/21 14:28 Vital Signs: Vital Signs Date Time Temp Pulse Resp B/P (MAP) Pulse Ox O2 Delivery O2 Flow Rate FiO2 06/15/21 14:25 98.1 79 16 187/84 96 98.1 EKG: EKG: [] Radiology/Procedures: Radiology/Procedures: [][facility] [address] [place] [address] IMAGING REPORT Signed PATIENT: PASCALE RAGLAND ACCOUNT: [id number] : 1970 LOCATION: ER AGE: 50 SEX: F EXAM STATUS: REG ER ORD. PHYSICIAN: JENNIFER STOCK DO REASON: abdominal pain PROCEDURE: CT ABD PELV W/ IV CONTRST ONLY Exam: CT of abdomen and pelvis with contrast INDICATION: Abdominal pain TECHNIQUE: Sequential axial images through the abdomen and pelvis obtained following the administration of 75 mL of Isovue-370 IV contrast. Sagittal and coronal reformatted images were reconstructed from the axial data and reviewed. Exposure: One or more of the following in the visualized dose reduction techniques were utilized for this examination: 1. Automated exposure control 2. Adjustment of the MA and/or KV according to patient size 3. Use of iterative of reconstructive technique Comparisons: 04/14/2019 FINDINGS: Heart size is normal. No pericardial effusion. Visualized lung bases are clear. No pleural effusion. Mild diffuse hepatic steatosis. Spleen, pancreas, and adrenals are unremarkable. Gallbladder surgically absent. No perinephric inflammation or hydronephrosis. No renal or ureteral calculi are identified. Bladder is partially distended and not well evaluated. Uterus is absent. No abnormal adnexal mass. Large and small bowel are unremarkable. Appendix is not identified. No free intra-abdominal air or fluid. No obstruction. Abdominal aorta has normal course and caliber. Abdominal vasculature is patent. No enlarged intra-abdominal lymph nodes are identified. No suspicious osseous lesions or acute fractures. There is a fat-containing ventral hernia at the upper abdomen midline. IMPRESSION: 1. No acute process identified within the abdomen or pelvis. 2. Diffuse hepatic steatosis 3. Midline fat-containing ventral hernia. No evidence for bowel obstruction. Electronically signed by: David Mendieta MD (06/15/2021 5:03 PM) [facility] DICTATED and SIGNED BY: DAVID MENDIETA MD DATE: 06/15/21 [id number] [facility] [address] [place] [address] IMAGING REPORT Signed PATIENT: PASCALE RAGLAND ACCOUNT: [id number] : 1970 LOCATION: ER AGE: 50 SEX: F EXAM STATUS: REG ER ORD. PHYSICIAN: JENNIFER STOCK DO REASON: cough PROCEDURE: CHEST AP ONLY XR CHEST 1V INDICATION: cough COMPARISON STUDY: 09/19/2014. FINDINGS: Lungs: Normal lung volume. No pulmonary mass or consolidation. The tracheobronchial tree and hilar structures are normal. Pleura: No pleural effusion or pneumothorax. Heart and Mediastinum: The cardiomediastinal silhouette is normal. The great vessels of the thorax are normal. Bones and Soft Tissues: The bones and soft tissues are within normal limits. IMPRESSION: No acute cardiopulmonary process. Electronically signed by: Cee John MD (06/15/2021 3:19 PM) [facility] DICTATED and SIGNED BY: CEE JOHN MD DATE: 06/15/21 [id number] Course & Med Decision Making: Course & Med Decision Making Pertinent Labs and Imaging studies reviewed. (See chart for details) Patient is a 50-year-old female who present to ER due to abdominal pain, nausea vomiting, patient also noted blood in her stool. This has been going on for 7 days. Her hemoglobin came back normal. Patient did not lose much blood based on lab. CT scan of abdomen pelvis did not show any acute problem. Patient was tested positive for COVID-19. Her oxygen saturation 100% on room air. Patient will be discharged home, instructed to quarantine at home Dragon Disclaimer: Dragon Disclaimer: This electronic medical record was generated, in whole or in part, using a voice recognition dictation system. Departure Departure Impression: Primary Impression: COVID-19 Additional Impression: Abdominal pain Disposition: 01 HOME / SELF CARE / HOMELESS Condition: IMPROVED Referrals: NO PCP (PCP) Please follow up with [facility] this week. [address], [address] [place] [address] Phone number: [phone] Patient Instructions: Abdominal Pain, Viral Syndrome Additional Instructions: You have been tested for or diagnosed with COVID-19. It is an infection caused by a new type of coronavirus. COVID-19 will cause cold-like or mild flu symptoms in most. It can cause more severe symptoms like problems breathing in some. There is no treatment for COVID-19. The body will clear the infection over time. Self-care will help to ease discomfort. Steps to Take: Self-Care Rest as needed. Healthy habits may help you feel better. Steps include: Choose healthy foods including fruits and vegetables. Drink water throughout the day. Get plenty of sleep each night. If you smoke, try to quit. It may ease breathing. Avoid alcohol. Keep Others Healthy The virus can spread to others. Droplets are released every time you sneeze or cough. The droplets can get into the mouth, nose, or eyes of people near you and lead to infection. To lower the chances of spreading COVID-19 to others: Stay at home until your doctor has said it is safe to leave. If you tested positive this will mean staying isolated until both of the following are true: At least 7 days have passed since the start of illness. You are free of fever for at least 72 hours without the use of medicine. During this time: - Avoid public areas, events, or transportation. Do not return to work or school until your doctor has said it is safe to do so. - Call ahead if you need to go to a medical center. Let them know you may have COVID-19. It will help them guide you where to go. They may also ask you to wear a facemask when you come to the office. - If you call for emergency medical services, let them know you may have COVID- 19. While at home: - Try to avoid close contact with others. Stay about 6 feet away. - If possible, spend most of your time in a separate room from others. - Use a face mask if you will be in close contact with others such as sharing a room or vehicle. - Have someone wipe down common surfaces in the home. Use household professor of forest planning every day on areas like doorknobs, counters, or sinks. - Cough or sneeze into a tissue. Throw the tissue away right after use. If a tissue is not available, cough or sneeze into your elbow. - Wash your hands often. Wash them after sneezing or coughing. Use soap and water and wash for at least 20 seconds. Alcohol based hand spice cleaner can be used if soap and water is not available. - Do not prepare food for others. Avoid sharing personal items like forks, spoons, or toothbrushes. - Avoid close contact with pets while you are sick. There is no evidence of the virus passing to pets. This is a safety step until more is known about this virus. Isolation can be frustrating. Social interaction can help. Keep in touch with friends and family through phone and tech options. You can still interact with others in your home, just keep a safe distance of about 6 feet. Follow-up: Your doctors office will check in with you to see if there are any changes in your health. You may be asked to keep track of symptoms to share with them. They will also let you know when you are clear to be in public again. Problems to Look Out For: Contact your doctor if your recovery is not going as you expect. Get emergency care if you have problems such as: - Trouble breathing - Nonstop chest pain or pressure - Changes in awareness, confusion, or problems waking - Lips or face have bluish color - Worsening of symptoms If you think you have an emergency, call for emergency medical services right away. As taken from [facility] Azithromycin (ZITHROMAX) 250 Mg Tablet 1 PKG PO UD, #6 TAB Prov: JENNIFER STOCK DO 06/15/21 Albuterol Sulfate (PROAIR HFA INHALER) 8.5 Gm Hfa.aer.ad 2 PUFF IH PRN Q4-6HRS PRN for wheezing for 21 Days, #1 INHALER 0 Refills Prov: JENNIFER STOCK DO 06/15/21 Prednisone (PREDNISONE) 20 Mg Tablet 1 TAB PO DAILY for 7 Days, #7 TAB Prov: JENNIFER STOCK DO 06/15/21 JENNIFER STOCK DO Jun 15, 2021 15:04
--- NOTE | 2021-06-15 15:21 | RAD ---
XR CHEST 1V INDICATION: cough COMPARISON STUDY: 09/19/2014. FINDINGS: Lungs: Normal lung volume. No pulmonary mass or consolidation. The tracheobronchial tree and hilar st ructures are normal. Pleura: No pleural effusion or pneumothorax. Heart and Mediastinum: The cardiomediastinal silhouette is normal. The great vessels of the thorax ar e normal. Bones and Soft Tissues: The bones and soft tissues are within normal limits. IMPRESSION: No acute cardiopulmonary process. Electronically signed by: Jose John MD (06/15/2021 3:19 PM) [facility]ITAL[facility]hisl[facility]
[2021-06-15] MEDS ORDERED: MAGNESIUM SULFATE 2GM 50 ML IV ONE (15:30)
[2021-06-15] MEDS ORDERED: IOHEXOL 300 MG/ML 100ML VIAL. IV ONE (16:00)
[2021-06-15] MEDS ORDERED: CONTRAST GIVEN. MC PRN (16:15)
--- NOTE | 2021-06-15 16:42 | EKG ---
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
--- NOTE | 2021-06-15 17:05 | RAD ---
Exam: CT of abdomen and pelvis with contrast INDICATION: Abdominal pain TECHNIQUE: Sequential axial images through the abdomen and pelvis obtained following the administrati on of 75 mL of Isovue-370 IV contrast. Sagittal and coronal reformatted images were reconstructed fro m the axial data and reviewed. Exposure: One or more of the following in the visualized dose reduction techniques were utilized for this examination: 1. Automated exposure control 2. Adjustment of the MA and/or KV according to patient size 3. Use of iterative of reconstructive technique Comparisons: 04/14/2019 FINDINGS: Heart size is normal. No pericardial effusion. Visualized lung bases are clear. No pleural effusion. Mild diffuse hepatic steatosis. Spleen, pancreas, and adrenals are unremarkable. Gallbladder surgical ly absent. No perinephric inflammation or hydronephrosis. No renal or ureteral calculi are identified. Bladder is partially distended and not well evaluated. Uterus is absent. No abnormal adnexal mass. Large and small bowel are unremarkable. Appendix is not identified. No free intra-abdominal air or fl uid. No obstruction. Abdominal aorta has normal course and caliber. Abdominal vasculature is patent. No enlarged intra-abdominal lymph nodes are identified. No suspicious osseous lesions or acute fractures. There is a fat-containing ventral hernia at the upp er abdomen midline. IMPRESSION: 1. No acute process identified within the abdomen or pelvis. 2. Diffuse hepatic steatosis 3. Midline fat-containing ventral hernia. No evidence for bowel obstruction. Electronically signed by: David Vanegas MD (06/15/2021 5:03 PM) [facility]
[2021-06-15 17:32] VITALS: BP 150/70
[2021-06-15] MEDS ORDERED: ALBU2.5V8 IH (17:40)
[2021-06-15] MEDS ORDERED: PRED20TA PO (17:40)
[2021-06-15] MEDS ORDERED: AZIT250T PO (17:40)
[2021-06-15] MEDS ORDERED: methylPREDNISolone SOD SUCC PF 125 MG/2 ML VIAL. IV ONE (17:45)
== END 2021-06-15 18:08 | disposition home or self-care (01) ==
LOC: ER 14:10
DX: U07.1 COVID-19 (principal); R10.84 Generalized abdominal pain; J44.9 Chronic obstructive pulmonary disease, unspecified; E78.00 Pure hypercholesterolemia, unspecified; I10 Essential (primary) hypertension; F17.200 Nicotine dependence, unspecified, uncomplicated; Z90.89 Acquired absence of other organs; Z90.710 Acquired absence of both cervix and uterus; Z90.49 Acquired absence of other specified parts of digestive tract; Z88.0 Allergy status to penicillin
CPT/HCPCS: 36415; 71045; 74177; 80053; 83690; 83735; 83880; 84484; 85025; 87426; 93005; 96365; 96366; 96375; 99285; J2930; J3475; Q9967